=== PATIENT | male | born 1965 | race Caucasian/White ===

== ENCOUNTER → 2017-12-21 | Day surgery (SDC) | payer OTHER | END | disposition home or self-care (01) | LOC: ADM 12-18 15:30 → AMB-ENDOS 07:35 | DX: D12.2 Benign neoplasm of ascending colon (principal); D12.3 Benign neoplasm of transverse colon; K64.1 Second degree hemorrhoids; Z12.11 Encounter for screening for malignant neoplasm of colon ==